=== PATIENT | male | born 2000 | race American Indian/Alaskan Native ===

== ENCOUNTER 2019-03-13 20:24 | Emergency (ER) | payer SELFPAY ==
--- NOTE | 2019-03-13 21:21 | Event Note ---
ED Screening Note Date of service: 03/13/19 Time: 21:19 ED Screening Note: This is a 18 y.o. M. that presents to the ER with chest pain and discomfort with swallowing. This initial assessment/diagnostic orders/clinical plan/treatment(s) is/are subject to change based on patients health status, clinical progression and re- assessment by fellow clinical providers in the ED. Further treatment and workup at subsequent clinical providers discretion. Patient/guardian urged not to elope from the ED as their condition may be serious if not clinically assessed and managed. Initial orders include: Rapid strep CXR
--- NOTE | 2019-03-13 22:41 | XRay Report ---
CHEST 2 VIEWS INDICATION / CLINICAL INFORMATION: chest pain. COMPARISON: None available. FINDINGS: SUPPORT DEVICES: None. HEART / MEDIASTINUM: There is pneumomediastinum. Air noted in the upper mediastinum extending into th e lower neck. LUNGS / PLEURA: No significant pulmonary or pleural abnormality. .No pneumothorax. ADDITIONAL FINDINGS: No significant additional findings. IMPRESSION: 1. There is pneumomediastinum. There is no pneumothorax. The lungs are clear. The heart size is oseas l. CRITICAL RESULT: Dr. Arroyo called this report to [facility] at time 2136 hours Central time. Report was confirmed. Signer Name: Wil Arroyo MD Signed: 03/13/2019 10:37 PM Workstation Name: [id number]
[2019-03-13] MEDS ORDERED: BOOSTRIX IM ONE (23:45)
[2019-03-13] MEDS ORDERED: MORPHINE IV ONE (23:45)
[2019-03-14 00:51] LABS: Basophils % (Auto) 0.3 % (0.0-1.8); Eosinophils # (Auto) 0.3 K/mm3 (0.0-0.4); Eosinophils % (Auto) 2.3 % (0.0-4.3); Hematocrit 44.8 % (35.5-45.6); Hemoglobin 15.5 gm/dl (11.8-15.2); Lymphocytes # (Auto) 3.4 K/mm3 (1.2-5.4); Lymphocytes % (Auto) 31.9 % (13.4-35.0); Mean Corpuscular HGB Conc 35 % (32-34); Mean Corpuscular Volume 92 fl (84-94); Monocytes # (Auto) 1.1 K/mm3 (0.0-0.8); Platelet Count 265 K/mm3 (140-440); Red Blood Count 4.87 M/mm3 (3.65-5.03); Red Cell Distribution Width 13.1 % (13.2-15.2)
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
[2019-03-14 01:23] LABS: BUN/Creatinine Ratio 6; Blood Urea Nitrogen 7 mg/dL (9-20); Calcium 9.2 mg/dL (8.4-10.2); Hemolysis Index 11
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
[2019-03-14 06:09] VITALS: BP 125/69
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
== END 2019-03-14 06:45 | disposition other institution (70) ==
LOC: ED 20:24
DX: J98.2 Interstitial emphysema (principal)
CPT/HCPCS: 36415; 70491; 71046; 71260; 80048; 85025; 87116; 87430; 90715; 96372; 96374; 99285; J2270; Q9967